=== PATIENT | male | born 1995 | race Caucasian/White ===

== ENCOUNTER 2021-06-02 17:37 | Emergency (ER) | payer OTHER ==
[~2021-06-02] VITALS: Ht 177.8 cm; Wt 89.2 kg
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
[2021-06-02] MEDS ORDERED: IBUPROFEN 800 MG TAB PO ONE (19:20)
[2021-06-02 19:31] VITALS: BP 140/70
== END 2021-06-02 19:41 | disposition home or self-care (01) ==
LOC: M ED 17:37
DX: S40.211A Abrasion of right shoulder, initial encounter (principal); V28.0XXA Motorcycle driver injured in noncollision transport accident in nontraffic accident, initial encounter; Y92.9 Unspecified place or not applicable; Y93.9 Activity, unspecified; Y99.9 Unspecified external cause status